=== PATIENT | female | born 1960 | race Caucasian/White ===

== ENCOUNTER 2018-12-14 20:17 | Emergency (ER) | payer OTHER, SELFPAY ==
[~2018-12-14] VITALS: Ht 162.6 cm; Wt 74.0 kg
[2018-12-14 20:37] VITALS: BP 126/85
[2018-12-14] MEDS ORDERED: IBUPROFEN 200 MG TABLET PO ONE (22:00)
[2018-12-14] MEDS ORDERED: IBUPROFEN 200 MG TABLET ONE (22:27)
== END 2018-12-14 23:37 | disposition home or self-care (01) ==
LOC: ED 23:20
DX: S46.212A Strain of muscle, fascia and tendon of other parts of biceps, left arm, initial encounter (principal); X50.0XXA Overexertion from strenuous movement or load, initial encounter; Y93.89 Activity, other specified; Y92.69 Other specified industrial and construction area as the place of occurrence of the external cause; Y99.8 Other external cause status
CPT/HCPCS: 99283